=== PATIENT | male | born 1945 | race Caucasian/White ===

== ENCOUNTER 2018-12-07 23:02 | Inpatient (IN) | payer OTHER ==
[~2018-12-07] VITALS: Ht 167.6 cm; Wt 72.6 kg
[2018-12-14] MEDS ORDERED: COZAAR50 MG PO (08:25)
[2018-12-14] MEDS ORDERED: XARELTO20 MG PO (08:25)
[2018-12-14] MEDS ORDERED: CARVEDILOL25 MG PO (08:25)
[2018-12-14] MEDS ORDERED: LIPITOR20 MG PO (08:25)
[2018-12-14] MEDS ORDERED: ALDACTONE25 MG PO (08:34)
== END 2018-12-14 09:23 | disposition home or self-care (01) | DRG 193 ==
LOC: ER 23:02 → SEC-K 12-08 11:04 → SURG 12-08 11:04 → SEC-K 12-08 11:46 → SURG 12-08 12:27 → MEDJ 12-13 15:42
PROVIDERS: ADMIT Internal Medicine
PROC: 4A033R1 Measurement of Arterial Saturation, Peripheral, Percutaneous Approach (ICD-10-PCS; principal; 2018-12-08)
PROC: 3E0F7GC Introduction of Other Therapeutic Substance into Respiratory Tract, Via Natural or Artificial Opening (ICD-10-PCS; 2018-12-08)
PROC: B246ZZZ Ultrasonography of Right and Left Heart (ICD-10-PCS; 2018-12-08)
PROC: BB24ZZZ Computerized Tomography (CT Scan) of Bilateral Lungs (ICD-10-PCS; 2018-12-08)
PROC: 4A12X4Z Monitoring of Cardiac Electrical Activity, External Approach (ICD-10-PCS; 2018-12-08)
DX: J18.1 Lobar pneumonia, unspecified organism (principal); I21.4 Non-ST elevation (NSTEMI) myocardial infarction; I24.8 Other forms of acute ischemic heart disease; J90 Pleural effusion, not elsewhere classified; I50.20 Unspecified systolic (congestive) heart failure; F14.10 Cocaine abuse, uncomplicated; R06.02 Shortness of breath; I11.0 Hypertensive heart disease with heart failure; I25.10 Atherosclerotic heart disease of native coronary artery without angina pectoris; I48.2 Chronic atrial fibrillation; Y95 Nosocomial condition

== ENCOUNTER → 2024-06-27 | Emergency (ER) | payer OTHER ==
[~2024-06-27] VITALS: Ht 167.6 cm; Wt 68.0 kg
[~2024-06-27] MED LIST: ALDACTONE25 MG PO; CARVEDILOL25 MG PO; COZAAR50 MG PO; ELIQUIS2.5 MG PO; FAMOTIDINE20 MG PO; LIPITOR20 MG PO; NORVASC2.5 M1 PO; XARELTO20 MG PO
[2024-06-27 17:53] LABS: HEMATOCRIT 46.2 % (39.0-48.0); HEMOGLOBIN 15.4 g/dL (13-16.00); MEAN CELL VOLUME 93.5 fL (80.0-100.00); MEAN CORPUSCULAR HEMOGLOBIN 31.1 pg (27.00-32.0); MEAN CORPUSCULAR HGB CONC 33.3 g/dl (32.0-36.0); PLATELET COUNT 192 K/uL (150-450); RED BLOOD COUNT 4.94 M/uL (4.00-6.00); RED CELL DISTRIBUTION WIDTH 13.6 % (11.5-14.5)
[2024-06-27 18:12] LABS: INR 1.05; PARTIAL THROMBOPLASTIN TIME 28.1 SECONDS (22.0-34.0); PROTHROMBIN TIME 11.4 SECONDS (9.0-11.5)
[2024-06-27 18:19] LABS: PH,URINE 5.5 (5.0-8.0); URINE APPEARANCE Clear; URINE BILIRRUBIN Negative (NEGATIVE); URINE BLOOD Negative; URINE COLOR Yellow; URINE GLUCOSE Negative (NEGATIVE); URINE KETONE Negative (NEGATIVE); URINE LEUKOCYTE Negative; URINE NITRATE Negative; URINE PROTEIN Trace (NEGATIVE); URINE UROBILINOGEN 0.2 E.U./dl
[2024-06-27 18:24] LABS: URINE BACTERIA 14.6 uL (0.0-1933); URINE EPITHELIAL CELLS 1.7 uL (0.0-38.8); URINE RBC 4.2 uL (0.0-20.8); URINE WBC 3.6 uL (0.0-23.2)
[2024-06-27 18:29] LABS: BILIRUBIN TOTAL 0.54 mg/dL (0.3-1.2); CALCIUM 8.8 mg/dL (8.5-10.1); CREATININE SERUM 1.78 mg/dL (0.70-1.30); GFR 37.35; GLOBULINA 3.7 G/DL (2.4-3.5); POTASSIUM 4.83 mEq/L (3.5-5.1); TOTAL PROTEIN 7.7 gm/dL (6.4-8.2)
== END | disposition home or self-care (01) ==
LOC: ER 14:55
PROVIDERS: General Practice
DX: E78.5 Hyperlipidemia, unspecified (principal); I10 Essential (primary) hypertension; E11.9 Type 2 diabetes mellitus without complications

== ENCOUNTER → 2024-08-13 | Emergency (ER) | payer OTHER ==
[~2024-08-13] VITALS: Ht 167.6 cm; Wt 68.0 kg
[~2024-08-13] MED LIST changes: +HYDROCODONE/CHLORPHEN P-STIREX 5 ML ML PO STA
[2024-08-13 23:07] LABS: BASO % 0.4 % (0.1-1.2); EOS # 0.27 (0.04-0.54); EOS % 2.6 % (0.7-7.0); HEMATOCRIT 44.7 % (40.1-51.0); HEMOGLOBIN 15.3 g/dL (13.7-17.5); LYMPH # 1.44 (1.18-3.74); LYMPH % 13.7 % (19.3-53.1); MONO # 1.21 (0.24-0.82); MONO % 11.5 % (4.7-12.5); NEUT # 7.52 (1.56-6.13); NEUT % 71.4 % (34.0-71.1); PLATELET COUNT 232 K/uL (163-369); RED CELL DISTRIBUTION WIDTH 12.2 % (11.6-14.4)
[2024-08-14 00:30] LABS: COVID-19 AG NEGATIVE (NEGATIVE); INFLUENZA A AG NEGATIVE (NEGATIVE)
== END | disposition home or self-care (01) ==
LOC: ER 21:24
DX: J06.9 Acute upper respiratory infection, unspecified (principal); Z20.822 Contact with and (suspected) exposure to COVID-19